=== PATIENT | male | born 1995 | race Two or more races ===

== ENCOUNTER 2021-07-15 09:34 | Emergency (ER) | payer OTHER ==
[~2021-07-15] VITALS: Ht 188 cm; Wt 80.2 kg
--- NOTE | 2021-07-15 10:15 | NUR ---
[employer]: PT TO ROOM FROM LOBBY.
[2021-07-15] MEDS ORDERED: ONDANSETRON 2MG/ML, 2ML IVPush ONE ×2 (11:30→12:30)
[2021-07-15] MEDS ORDERED: SODIUM CHLORIDE 0.9% 1,000ML IVBOLUS ONE (11:30)
[2021-07-15] MEDS ORDERED: KETOROLAC 30 MG/1 ML IVPush ONE (11:30)
[2021-07-15 11:36] LABS: BASOPHILS % (AUTO) 0 % (0-1); EOSINOPHILS % (AUTO) 0 % (1-7); LYMPHOCYTES % (AUTO) 20 % (22-44); MEAN CORPUSCULAR HEMOGLOBIN 32.4 pg (27.5-34.5); MEAN PLATELET VOLUME 8.4 fL (7.4-10.4); MONOCYTES % (AUTO) 7 % (2-9); NEUTROPHILS % (AUTO) 73 % (42-75); PLATELET COUNT 150 x10^3/uL (130-400); RED BLOOD COUNT 4.55 x10^6/uL (4.38-5.82); RED CELL DISTRIBUTION WIDTH 13.5 % (9.4-14.8)
[2021-07-15 11:46] LABS: ALBUMIN 3.4 g/dL (3.4-5.0); ANION GAP 5 mmol/L (5-15); CALCIUM 8.4 mg/dL (8.5-10.1); CHLORIDE 107 mmol/L (98-107)
[2021-07-15] MEDS ORDERED: KETOROLAC 30 MG/1 ML ONE (11:46)
[2021-07-15] MEDS ORDERED: ONDANSETRON 2MG/ML, 2ML ONE ×2 (11:46→12:26)
[2021-07-15 11:49] LABS: CREATININE 0.81 mg/dL (0.7-1.3)
--- NOTE | 2021-07-15 12:01 | NUR ---
TASK RN NOTE: PT HOB TO LEVEL OF COMFORT. IVF INFUSING PER EMAR. RESPIRATIONS EVEN AND UNLABORED. PT DENIES PAIN RELIEF AT THIS TIME, EXTREMELY SENSITIVE TO ANY MOVEMENT, SIDE RAIL UP CALL LIGHT IN REACH TASK RN TO DISCUSS ALTERNATIVE PAIN FOR THIS PT.
--- NOTE | 2021-07-15 12:25 | NUR ---
TASK RN NOTE: PT IN CT AT THIS TIME. DISCUSSION WITH ED PA REGARDING PT'S SUSTAINED PAIN LEVEL.
[2021-07-15] MEDS ORDERED: MORPHINE SULFATE 4 MG/ML, 1ML ONE ×2 (12:26→13:27)
[2021-07-15] MEDS: MORPHINE SULFATE 4 MG/ML, 1ML IVPush PRN ×2 (12:40→13:28)
--- NOTE | 2021-07-15 12:40 | NUR ---
TASK RN NOTE: PT MEDICATED PER EMAR FOR PAIN. PT AWARE OF NEED FOR UA. URINAL PROVIDED.
[2021-07-15 13:45] LABS: MICROSCOPIC NOT IND
[2021-07-15] MEDS ORDERED: DIAZEPAM 5 MG/ML, 2ML IV ONE (14:00)
--- NOTE | 2021-07-15 14:04 | NUR ---
REPORT TO NATALY VALENZUELA.
[2021-07-15] MEDS ORDERED: DIAZEPAM 5 MG/ML, 2ML ONE (14:07)
[2021-07-15 14:10] VITALS: BP 130/78
--- NOTE | 2021-07-15 14:22 | NUR ---
IV removed with tip intact. Patient given discharge instructions and prescription and they have confirmed that they understand the instructions. Patient ambulatory with steady gait to friends vehicle. NAD, all questions answered appropriately, denies additional needs at this time. No personal belongings left in room after discharge.
== END 2021-07-15 14:23 | disposition home or self-care (01) ==
LOC: ED 13:33
DX: M54.6 Pain in thoracic spine (principal); R10.9 Unspecified abdominal pain
CPT/HCPCS: 36415; 74176; 80048; 81003; 82040; 85025; 96361; 96374; 96375; 96376; 99284; J1885; J2270; J2405; J3360; J7030